=== PATIENT | male | born 1935 | race Caucasian/White ===

== ENCOUNTER 2020-12-05 15:51 | Emergency (ER) | payer OTHER ==
[~2020-12-05] VITALS: Ht 172.7 cm; Wt 63.5 kg
[2020-12-05 16:00] VITALS: BP_SYST 141
[2020-12-05 19:41] VITALS: BP_SYST 141
== END 2020-12-05 19:41 | disposition home or self-care (01) ==
LOC: SED 15:51
DX: R41.0 Disorientation, unspecified (principal)
CPT/HCPCS: 70450-TC; 76376; 99284